=== PATIENT | female | born 1945 | race Caucasian/White ===

== ENCOUNTER 2019-12-03 16:38 | Emergency (ER) | payer MEDICARE, OTHER ==
[2019-12-05 15:29] LABS: SARS-CoV-2 MS2 Positive; SARS-CoV-2 N Gene Negative; SARS-CoV-2 S Gene Negative; SARS-CoV-2 orf1ab Negative
== END 2019-12-03 17:23 | disposition home or self-care (01) ==
LOC: NAV ERS 16:38
DX: Z20.828 Contact with and (suspected) exposure to other viral communicable diseases (principal); M79.7 Fibromyalgia; J45.909 Unspecified asthma, uncomplicated; Z79.51 Long term (current) use of inhaled steroids; Z79.899 Other long term (current) drug therapy
CPT/HCPCS: 87635; 99283; U0003